=== PATIENT | female | born 1980 | race Caucasian/White ===

== ENCOUNTER 2020-10-27 14:04 | Outpatient (CLI) | payer MEDICAID ==
[2020-10-29 15:21] LABS: NIL 0.02 IU/mL
== END 2020-10-27 14:05 | disposition home or self-care (01) ==
LOC: LAB 14:04
PROVIDERS: ATTEND Registered Nurse
DX: Z00.00 Encounter for general adult medical examination without abnormal findings (principal)
CPT/HCPCS: 36415; 86480

== ENCOUNTER 2020-11-10 15:26 | Outpatient (CLI) | payer MEDICAID ==
[2020-11-13 23:46] LABS: VARICELLA ZOSTER VIRUS IGM 0.5
== END 2020-11-10 15:27 | disposition home or self-care (01) ==
LOC: LAB.S 15:26
PROVIDERS: ATTEND Registered Nurse
DX: Z00.00 Encounter for general adult medical examination without abnormal findings (principal)
CPT/HCPCS: 36415; 86735; 86762; 86765; 86787

== ENCOUNTER 2022-08-30 08:00 | Outpatient (CLI) | payer MEDICAID | END 2022-08-30 23:59 | disposition home or self-care (01) | LOC: LAB.S 08:00 | PROVIDERS: ATTEND Physician Assistant | DX: J02.9 Acute pharyngitis, unspecified (principal) | CPT/HCPCS: 87070 ==